=== PATIENT | male | born 1990 | race Caucasian/White ===

== ENCOUNTER 2022-08-08 04:53 | Emergency (ER) | payer OTHER, SELFPAY ==
[2022-08-08 04:55] VITALS: BP 120/83; PULSE 112; RESP 18; TEMP 36.6; O2SAT 98; BMI 30.4
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
[2022-08-08] MEDS: tetanus-dipt-pertussis 0.5 mL SDV IM (05:13)
[2022-08-08] MEDS: lidocaine 1% INJ 10 mL (per mL) 20 ML INTRADERMA (05:20)
[2022-08-08 05:43] VITALS: BP 120/83; PULSE 100; RESP 16; O2SAT 95
[2022-08-08 05:55] VITALS: RESP 16
== END 2022-08-08 05:56 | disposition home or self-care (01) ==
PROVIDERS: Emergency Provider Emergency Medicine
DX: S71.131A Puncture wound without foreign body, right thigh, initial encounter (principal); X95.9XXA Assault by unspecified firearm discharge, initial encounter; Z87.891 Personal history of nicotine dependence; Z23 Encounter for immunization
CPT/HCPCS: 12002; 73552; 90471; 90715; 99283